=== PATIENT | female | born 1935 | race Caucasian/White ===

== ENCOUNTER 2019-03-01 17:42 | Inpatient (IN) | payer MEDICARE, BC ==
[2019-03-01 18:12] LABS: #Eosinphils 0.1 thou/uL (0.0-0.7); #Lymphocytes 1.8 thou/uL (1.20-3.40); #Monocytes 0.7 thou/uL (0.11-0.59); #Neutrophils 4.3 thou/uL (1.40-6.50); %Basophils 0.6 % (0.0-1.0); %Eosinophils 1.5 % (0.0-10.0); %Lymphocytes 25.9 % (21.0-51.0); %Monocytes 9.8 % (0.0-10.0); %Neutrophils 62.3 % (42.0-75.0); Hemoglobin 13.6 g/dL (12.0-16.0); Mean Corpuscular HGB CONC 34.1 g/dL (32.0-36.0); Mean Corpuscular Hemoglobin 31.7 pg (27.0-31.0); Mean Corpuscular Volume 92.9 fL (78.0-98.0); Mean Platelet Volume 10.1 fL (7.4-10.4); Platelet Count 131 thou/uL (130-400); RBC Distribution Width 11.9 % (11.5-14.5)
[2019-03-01 18:24] LABS: ALT (SGPT) 9 U/L (8-55); AST (SGOT) 14 U/L (5-34); Albumin 4.1 g/dL (3.4-4.8); Alkaline Phosphatase 65 U/L (40-110); Anion Gap 12 mmol/L (10-20); BUN (Urea Nitrogen) 40 mg/dL (9.8-20.1); Bilirubin, Total 0.5 mg/dL (0.2-1.2); Calc. Creatinine Clearance 0 mL/min (70-130); Calcium 9.8 mg/dL (7.8-10.44); Carbon Dioxide 26 mmol/L (23-31); Chloride 104 mmol/L (98-107); Estimated GFR-MDRD 19; Globulin 2.7 g/dL (2.4-3.5); Glucose 84 mg/dL (83-110); Potassium 4.3 mmol/L (3.5-5.1); Protein, Total 6.8 g/dL (6.0-8.3); Sodium 138 mmol/L (136-145)
[2019-03-01 18:33] LABS: Acetaminophen Less than 6.0 mcg/mL (10.0-30.0); Alcohol Less than 10 mg/dL (Less than 10); Salicylate Less than 8.0 mg/dL (15.0-30.0)
--- NOTE | 2019-03-01 19:16 | RAD ---
Chest AP view INDICATION: Altered mental status COMPARISON: Prior chest radiograph dated March 31, 2018 and March 31, 2016 FINDINGS: Lungs:The lungs are clear Cardiac silhouette:Moderate cardiomegaly is stable Pulmonary vasculature:Normal Pleural spaces:No pleural effusion or pneumothorax is demonstrated. Upper abdomen:No abnormality seen. Osseous structures: No acute osseous abnormality. Additional findings:Stable large hiatal hernia IMPRESSION: 1. Stable cardiomegaly. 2. Stable large hiatal hernia
--- NOTE | 2019-03-01 19:22 | CT ---
CT Brain WO Con: 03/01/2019 12:00 AM CLINICAL HISTORY: Altered mental status and urinary tract infection. IMAGING TECHNIQUE: Multiple CT images were obtained of the brain without IV contrast. COMPARISON: Prior exam dated June 03, 2015 FINDINGS: This patient was unable to lay the head down during the examination. The examination was pe rformed and a coronal acquisition Brain: No acute infarct or hydrocephalus is evident. No midline shift is present. There is stable mo derate chronic small vessel white matter ischemic change. Ventricles: Normal. No hydrocephalus.. Skull: Intact.. Visualized Paranasal sinuses: Clear.. Mastoid air cells:Clear. Extracranial soft tissues:Normal. IMPRESSION: No acute intracranial abnormality.
[2019-03-01 20:04] LABS: Bilirubin Negative (Negative); Blood, Urine Negative (Negative); Glucose, Urine (Dipstick) Negative (Negative); Leukocyte Moderate (Negative); Nitrite Positive (Negative); Protein, Urine (Dipstick) Negative (Neg-Trace); Urobilinogen 0.2 mg/dL (Less than 2)
[2019-03-01] MEDS ORDERED: cefTRIAXone\\ROCEPHIN 1 GM VIAL ONE (20:04)
[2019-03-01 20:08] LABS: Bacteria/HPF 4+ HPF (None Seen); RBC/HPF 0-3 HPF (0-3); WBC/HPF Greater than 50 HPF (0-3)
[2019-03-01 20:10] LABS: Clarity HAZY (Clear)
[2019-03-01 20:14] LABS: Amphetamine Not Detected (NotDetected); Barbiturates Screen Not Detected (NotDetected); Benzodiazepine Screen Not Detected (NotDetected); Cocaine Metabolite Screen Not Detected (NotDetected); Medtox Control Line Valid? VALID (VALID); Medtox Reader # READER 4; Methadone Not Detected (NotDetected); Methamphetamine Not Detected (NotDetected); Opiate Screen Not Detected (NotDetected); Oxycodone Screen Not Detected (NotDetected); Phencyclidine (PCP) Not Detected (NotDetected); THC/Cannabinoid Screen Not Detected (NotDetected); Tricyclic Screen Not Detected (NotDetected)
[2019-03-01] MEDS ORDERED: Ondansetron ODT 4 MG TAB SL PRN (22:17)
[2019-03-01] MEDS ORDERED: Ondansetron PF 4 MG/2 ML Vial IVP PRN (22:17)
[2019-03-01] MEDS ORDERED: Acetaminophen 325 MG TAB PO PRN (22:17)
[2019-03-01] MEDS ORDERED: cefTRIAXone\\ROCEPHIN 1 GM in Sodium Chloride 0.9% 100 ML IVPB SCH (22:30)
[2019-03-01] MEDS ORDERED: Dextrose 5 %-0.45 % NaCl 1,000 ML IV SCH (22:30)
[2019-03-01] MEDS: Dextrose 5 %-0.45 % NaCl 1,000 ML IV SCH (22:37)
[2019-03-01 22:51] VITALS: BMI 30.9
[2019-03-02 05:06] LABS: Anion Gap 10 mmol/L (10-20); BUN (Urea Nitrogen) 36 mg/dL (9.8-20.1); Calc. Creatinine Clearance 28 mL/min (70-130); Calcium 8.5 mg/dL (7.8-10.44); Carbon Dioxide 26 mmol/L (23-31); Chloride 107 mmol/L (98-107); Estimated GFR-MDRD 24; Glucose 112 mg/dL (83-110); Sodium 139 mmol/L (136-145)
[2019-03-02 05:18] LABS: #Eosinphils 0.1 thou/uL (0.0-0.7); #Lymphocytes 1.4 thou/uL (1.20-3.40); #Monocytes 0.7 thou/uL (0.11-0.59); %Basophils 0.1 % (0.0-1.0); %Eosinophils 1.7 % (0.0-10.0); %Neutrophils 69.2 % (42.0-75.0); Hemoglobin 11.7 g/dL (12.0-16.0); Mean Corpuscular HGB CONC 33.7 g/dL (32.0-36.0); Mean Corpuscular Hemoglobin 31.5 pg (27.0-31.0); Mean Corpuscular Volume 93.4 fL (78.0-98.0); Mean Platelet Volume 10.5 fL (7.4-10.4); Platelet Count 106 thou/uL (130-400); Platelet Morphology Comment Appears Decreased; RBC Distribution Width 11.8 % (11.5-14.5); Red Blood Cell (RBC) Count 3.73 mill/uL (4.20-5.40); White Blood Cell (WBC) Count 7.2 thou/uL (4.8-10.8)
[2019-03-02] MEDS: Dextrose 5 %-0.45 % NaCl 1,000 ML IV SCH ×3 (05:35→20:20)
[2019-03-02] MEDS ORDERED: FLU VACC TS2019-20(65YR UP)/PF 180 MCG/0.5 ML SYRINGE IM ONE (09:00)
--- NOTE | 2019-03-02 13:13 | PDOC.HHP ---
Hospitalist HPI - History of Present Illness altered mental status History of Present Illness: This is an 83 year old female who was sent from group home for altered mental status, and reduced po intake. She had UTI on 02/17. Urine culture grew Klebsiella and she was treated with cipro. Vitals upon group home transferred were unremarkable with no fever. Of note, her creatinine had been increasing from 1.5 to 2.6 over the past few months. Patient is not aware of where she is and am unable to get a history from her. She complains of abdominal pain for the past few days, constipation. She denies dysuria but states she had it last week. She denies nausea, vomiting, diarrhea , chest pain, shortness of breath, or any recent falls. She denies dizziness. Per nursing staff patient was crying earlier and wanted to go home, but now is calm. She is asking for a hamburger now. ED Course: In ED, vitals were stable. Labs significant for creatinine of 2.4. She had a UA which showed WBC > 50, moderate leukocyte esterase, + nitrite. She got IV ceftriaxone. SHe got 500 mL normal saline and 1 gram ceftriaxone. Hospitalist ROS - Review of Systems ROS unobtainable: due to mental status Constitutional: denies: fever, chills Eyes: denies: vision change ENT: denies: ear pain, ear discharge Respiratory: denies: cough, shortness of breath, hemoptysis Cardiovascular: denies: chest pain, palpitations, orthopnea Gastrointestinal: denies: nausea, vomiting, abdominal pain Genitourinary: denies: dysuria, frequency, incontinence Musculoskeletal: reports: other (reports diffuse all body pain). denies: neck pain, shoulder pain Neurological: denies: weakness, numbness, incoordination - Medication Medications: Active Medications Generic Name Dose Route Start Last Admin Trade Name Freq PRN Reason Stop Dose Admin Dextrose/Sodium Chloride 1,000 mls @ 100 mls/hr 03/01/19 20:00 03/02/19 09:41 D5 1/2 Ns IV 1,000 mls .Q10H JULIANN Administration Hospitalist History - Past Medical History Cardiac: reports: HTN, Hyperlipidemia Pulmonary: reports: asthma [employer] SYSTEMS: reports: Dementia Heme/Onc: reports: Iron deficiency anemia Psych: reports: Anxiety, Depression Endocrine: reports: Osteoporosis - Past Surgical History Other Surgical History: Cardiac cath 2012 EGD Appendectomy Total abdominal hysterectomy Bilateral salpingo-oophorectomy - Family History Other Family History: unknown - Social History Smoking Status: Unknown if ever smoked Living Situation: Alf - Exam General Appearance: NAD, awake alert Eye: PERRL, anicteric sclera ENT: normocephalic atraumatic, no oropharyngeal lesions ENT - other findings: poor dentition Neck: negative: no thyromegaly, no lymphadenopathy Heart: RRR, no murmur, no gallops, no rubs Respiratory: CTAB, no wheezes, no rales Gastrointestinal: soft, normal bowel sounds Gastrointestinal - other findings: mild tenderness in RLQ Extremities: no edema Skin: no lesions, no rashes Neurological: cranial nerve grossly intact, normal sensation to touch, no focal deficits, no new deficit Musculoskeletal: normal tone, normal strength, no muscle wasting Psychiatric: normal affect, normal behavior, oriented to place Hospitalist Results - Labs Result Diagrams: 03/02/19 04:15 03/02/19 04:15 Lab results: WBC 7.2 thou/uL (4.8-10.8) 03/02/19 04:15 Hgb 11.7 g/dL (12.0-16.0) L 03/02/19 04:15 Hct 34.8 % (36.0-47.0) L 03/02/19 04:15 MCV 93.4 fL (78.0-98.0) 03/02/19 04:15 Plt Count 106 thou/uL (130-400) L 03/02/19 04:15 Neutrophils % 69.2 % (42.0-75.0) 03/02/19 04:15 Sodium 139 mmol/L (136-145) 03/02/19 04:15 Potassium 4.0 mmol/L (3.5-5.1) 03/02/19 04:15 Chloride 107 mmol/L (98-107) 03/02/19 04:15 Carbon Dioxide 26 mmol/L (23-31) 03/02/19 04:15 BUN 36 mg/dL (9.8-20.1) H 03/02/19 04:15 Creatinine 2.03 mg/dL (0.6-1.1) H 03/02/19 04:15 Glucose 112 mg/dL (83-110) H 03/02/19 04:15 Lactic Acid 2.0 mmol/L (0.5-2.2) 03/01/19 17:58 Calcium 8.5 mg/dL (7.8-10.44) 03/02/19 04:15 Total Bilirubin 0.5 mg/dL (0.2-1.2) 03/01/19 17:59 AST 14 U/L (5-34) 03/01/19 17:59 ALT 9 U/L (8-55) 03/01/19 17:59 Alkaline Phosphatase 65 U/L (40-110) 03/01/19 17:59 Troponin I Less than 0.010 ng/mL (< 0.028) 03/01/19 17:58 B-Natriuretic Peptide 11.5 pg/mL (0-100) 03/01/19 17:59 Serum Total Protein 6.8 g/dL (6.0-8.3) 03/01/19 17:59 Albumin 4.1 g/dL (3.4-4.8) 03/01/19 17:59 Urine Ketones Negative mg/dL (Negative) 03/01/19 19:50 Urine Blood Negative (Negative) 03/01/19 19:50 Urine Nitrite Positive (Negative) A 03/01/19 19:50 Ur Leukocyte Esterase Moderate (Negative) H 03/01/19 19:50 Urine RBC 0-3 HPF (0-3) 03/01/19 19:50 Urine WBC Greater than 50 HPF (0-3) A 03/01/19 19:50 Ur Squamous Epith Cells 11-20 HPF (0-3) A 03/01/19 19:50 Urine Bacteria 4+ HPF (None Seen) A 03/01/19 19:50 Hospitalist H&P A/P - Plan Plan: Chest x ray: cardiomegaly, hiatal hernia CT head: no acute disease This is an 83 year old female sent from group home due to decreased po intake , UTI, HAMLET Acute encephalopathy possibly from Proteus UTI vs medications -urine culture here growing Proteus mirabilis. continue IV ceftriaxone for now - CT head negative, chest X ray shows no pneumonia HAMLET - creatinine improved to 2.03 with IV fluids, will continue - hold hydralazine and lasix for now Constipation - laxatives prn Dementia - namenda, risperidone, rivastigmine patch DVT prophylaxis: heparin 5000 units SC TID Code status: assume full code, unknown
[2019-03-02] MEDS ORDERED: Acetaminophen 325 MG TAB PO PRN (13:22)
[2019-03-02] MEDS ORDERED: Ondansetron ODT 4 MG TAB PO PRN (13:22)
[2019-03-02] MEDS ORDERED: cefTRIAXone\\ROCEPHIN 1 GM in Sodium Chloride 0.9% 100 ML IVPB SCH (20:00)
[2019-03-02] MEDS: risperiDONE 0.25 MG TAB PO SCH (20:04)
[2019-03-02] MEDS: Potassium Chloride 10 MEQ TAB PO SCH (20:04)
[2019-03-02] MEDS: Heparin 5,000 UNITS/ML VIAL SC SCH (21:17)
[2019-03-02] MEDS ORDERED: diphenhydrAMINE 50 MG/ML VIAL IVP SCH (22:45)
[2019-03-03] MEDS ORDERED: Melatonin 3 MG TAB PO SCH (02:00)
[2019-03-03 07:26] LABS: Hemoglobin 11.2 g/dL (12.0-16.0); Mean Corpuscular HGB CONC 33.2 g/dL (32.0-36.0); Mean Corpuscular Hemoglobin 31.8 pg (27.0-31.0); Mean Corpuscular Volume 95.8 fL (78.0-98.0); Mean Platelet Volume 10.1 fL (7.4-10.4); Platelet Count 99 thou/uL (130-400); RBC Distribution Width 11.6 % (11.5-14.5); Red Blood Cell (RBC) Count 3.51 mill/uL (4.20-5.40); White Blood Cell (WBC) Count 5.2 thou/uL (4.8-10.8)
[2019-03-03 07:48] LABS: Anion Gap 10 mmol/L (10-20); BUN (Urea Nitrogen) 23 mg/dL (9.8-20.1); Calc. Creatinine Clearance 34 mL/min (70-130); Carbon Dioxide 24 mmol/L (23-31); Chloride 109 mmol/L (98-107); Estimated GFR-MDRD 30; Glucose 108 mg/dL (83-110); Potassium 3.9 mmol/L (3.5-5.1); Sodium 139 mmol/L (136-145)
[2019-03-03] MEDS: Potassium Chloride 10 MEQ TAB PO SCH ×2 (09:00→18:33)
[2019-03-03] MEDS: Rivastigmine 9.5mg/24 Hour PATCH TOP SCH (10:03)
[2019-03-03] MEDS: Calcium Carbonate + Vit D 1 TAB PO SCH (10:03)
[2019-03-03] MEDS: Heparin 5,000 UNITS/ML VIAL SC SCH ×3 (10:04→20:42)
[2019-03-03] MEDS: Dextrose 5 %-0.45 % NaCl 1,000 ML IV SCH (18:33)
[2019-03-03] MEDS: risperiDONE 0.25 MG TAB PO SCH (20:42)
--- NOTE | 2019-03-03 23:56 | PDOC.HOSPP ---
- Subjective Encounter Date: 03/03/19 Encounter Time: 11:00 Subjective: Doing better today, no complaints except vague abdominal pain. Per nurse she had a bowel movement - Objective Vital Signs & Weight: Vital Signs (12 hours) Temp Pulse Resp BP Pulse Ox 03/03/19 20:40 94 L 03/03/19 20:00 97.5 F L 66 16 134/69 94 L Weight Weight 180 lb 1 oz I&O: 03/02/19 03/03/19 03/04/19 06:59 06:59 06:59 Intake Total 1240 2080 4102 Output Total 400 400 Balance 840 1680 4102 Result Diagrams: 03/03/19 07:08 03/03/19 07:08 Hospitalist ROS - Review of Systems Constitutional: denies: chills - Medication Medications: Active Medications Generic Name Dose Route Start Last Admin Trade Name Freq PRN Reason Stop Dose Admin Calcium/Vitamin D 1 tab 03/03/19 09:00 03/03/19 10:03 Caltrate 600 + Vit D PO 1 tab DAILY JULIANN Administration Cefpodoxime Proxetil 200 mg 03/03/19 21:00 03/03/19 20:42 Vantin PO 200 mg Q12HR JULIANN Administration Heparin Sodium (Porcine) 5,000 units 03/02/19 21:00 03/03/19 20:42 Heparin SC 5,000 units TID JULIANN Administration Dextrose/Sodium Chloride 1,000 mls @ 100 mls/hr 03/01/19 20:00 03/03/19 18:33 D5 1/2 Ns IV 1,000 mls .Q10H JULIANN Administration Memantine 10 mg 03/02/19 21:00 03/03/19 20:42 Namenda PO 10 mg BID JULIANN Administration Potassium Chloride 10 meq 03/02/19 16:30 03/03/19 18:33 Klor-Con 10 PO 10 meq BID-AC JULIANN Administration Risperidone 0.25 mg 03/02/19 21:00 03/03/19 20:42 Risperidone PO 0.25 mg HS JULIANN Administration Rivastigmine 9.5 mg 03/03/19 09:00 03/03/19 10:03 Exelon Patch TOP 9.5 mg DAILY JULIANN Administration Sertraline HCl 75 mg 03/03/19 09:00 03/03/19 10:04 Zoloft PO 75 mg DAILY JULIANN Administration Sodium Chloride 10 ml 03/03/19 21:00 03/03/19 20:42 Flush - Normal Saline IVF 10 ml Q12HR JULIANN Administration - Exam General Appearance: NAD, awake alert Eye: PERRL, anicteric sclera ENT: normocephalic atraumatic, no oropharyngeal lesions Neck: supple, symmetric Heart: RRR, no murmur, no gallops Respiratory: CTAB, no wheezes, no rales, normal chest expansion Gastrointestinal: soft, non-distended Gastrointestinal - other findings: mild lower quadrant tenderness Extremities: no cyanosis, no clubbing, no edema Skin: normal turgor Neurological: cranial nerve grossly intact Hosp A/P - Plan Acute encephalopathy possibly from Proteus UTI vs medications -urine culture here growing Proteus mirabilis. Switch to oral cefpodoxime - CT head negative, chest X ray shows no pneumonia HAMLET - creatinine improving, but not at baseline, continue fluids Constipation - laxatives prn Dementia - namenda, risperidone, rivastigmine patch
[2019-03-04] MEDS: Dextrose 5 %-0.45 % NaCl 1,000 ML IV SCH ×3 (01:15→18:05)
[2019-03-04 04:32] LABS: Hemoglobin 12.2 g/dL (12.0-16.0); Mean Corpuscular HGB CONC 33.6 g/dL (32.0-36.0); Mean Corpuscular Hemoglobin 31.8 pg (27.0-31.0); Mean Corpuscular Volume 94.6 fL (78.0-98.0); Mean Platelet Volume 10.1 fL (7.4-10.4); Platelet Count 102 thou/uL (130-400); RBC Distribution Width 11.7 % (11.5-14.5); Red Blood Cell (RBC) Count 3.84 mill/uL (4.20-5.40); White Blood Cell (WBC) Count 4.9 thou/uL (4.8-10.8)
[2019-03-04 04:51] LABS: Anion Gap 9 mmol/L (10-20); BUN (Urea Nitrogen) 15 mg/dL (9.8-20.1); Calc. Creatinine Clearance 41 mL/min (70-130); Calcium 8.5 mg/dL (7.8-10.44); Carbon Dioxide 24 mmol/L (23-31); Chloride 111 mmol/L (98-107); Estimated GFR-MDRD 36; Glucose 104 mg/dL (83-110); Potassium 4.2 mmol/L (3.5-5.1); Sodium 140 mmol/L (136-145)
[2019-03-04] MEDS: Rivastigmine 9.5mg/24 Hour PATCH TOP SCH (09:21)
[2019-03-04] MEDS: Calcium Carbonate + Vit D 1 TAB PO SCH (09:21)
[2019-03-04] MEDS: Potassium Chloride 10 MEQ TAB PO SCH ×2 (09:22→16:33)
[2019-03-04] MEDS: Heparin 5,000 UNITS/ML VIAL SC SCH ×3 (10:29→20:33)
--- NOTE | 2019-03-04 18:17 | PDOC.HOSPP ---
- Subjective Encounter Date: 03/04/19 Encounter Time: 18:16 Subjective: Patient is still complaining of abdominal pain, states pain varies between sharp or dull. Unable to state exacerbating or alleviating factors. She says she doesn't think she's had bowel movement. Aware she is in hospital and aware season is fall. - Objective Vital Signs & Weight: Vital Signs (12 hours) Temp Pulse Resp BP Pulse Ox 03/04/19 09:14 92 L 03/04/19 08:15 98.3 F 63 18 131/63 92 L Weight Weight 180 lb 1 oz I&O: 03/03/19 03/04/19 03/05/19 06:59 06:59 06:59 Intake Total 2080 4342 3080 Output Total 400 Balance 1680 4342 3080 Result Diagrams: 03/04/19 04:14 03/04/19 04:14 Hospitalist ROS - Review of Systems Constitutional: denies: fever, chills Gastrointestinal: reports: abdominal pain. denies: nausea, vomiting - Medication Medications: Active Medications Generic Name Dose Route Start Last Admin Trade Name Noah PRN Reason Stop Dose Admin Calcium/Vitamin D 1 tab 03/03/19 09:00 03/04/19 09:21 Caltrate 600 + Vit D PO 1 tab DAILY JULIANN Administration Cefpodoxime Proxetil 200 mg 03/03/19 21:00 03/04/19 09:20 Vantin PO 200 mg Q12HR JULIANN Administration Heparin Sodium (Porcine) 5,000 units 03/02/19 21:00 03/04/19 15:30 Heparin SC 5,000 units TID JULIANN Administration Dextrose/Sodium Chloride 1,000 mls @ 100 mls/hr 03/01/19 20:00 03/04/19 18:05 D5 1/2 Ns IV 1,000 mls .Q10H JULIANN Administration Memantine 10 mg 03/02/19 21:00 03/04/19 09:22 Namenda PO 10 mg BID JULIANN Administration Potassium Chloride 10 meq 03/02/19 16:30 03/04/19 16:33 Klor-Con 10 PO Not Given BID-AC JULIANN Risperidone 0.25 mg 03/02/19 21:00 03/03/19 20:42 Risperidone PO 0.25 mg HS JULIANN Administration Rivastigmine 9.5 mg 03/03/19 09:00 03/04/19 09:21 Exelon Patch TOP 9.5 mg DAILY JULIANN Administration Sertraline HCl 75 mg 03/03/19 09:00 03/04/19 09:21 Zoloft PO 75 mg DAILY JULIANN Administration Sodium Chloride 10 ml 03/03/19 21:00 03/04/19 09:26 Flush - Normal Saline IVF Not Given Q12HR JULIANN - Exam General Appearance: NAD, awake alert Eye: PERRL, anicteric sclera ENT: normocephalic atraumatic, no oropharyngeal lesions Neck: supple, symmetric, no JVD, no carotid bruit Heart: RRR, no murmur, no gallops, no rubs Respiratory: CTAB, no wheezes, no rales Gastrointestinal: non-tender, non-distended. negative: soft Gastrointestinal - other findings: mild abdominal tenderness in epigastric region Extremities: no cyanosis, no clubbing, 2+ LE edema Extremities - other findings: nonpitting edema Skin: normal turgor, no lesions, no rashes Neurological: cranial nerve grossly intact, normal sensation to touch, no focal deficits, no new deficit Musculoskeletal: normal tone, normal strength Psychiatric: oriented to place Hosp A/P - Plan This is 83 year old female sent for altered mental status, decrease po intake, treating for UTI and HAMLET Acute encephalopathy possibly from Proteus UTI vs medications -urine culture here growing Proteus mirabilis. Was on ceftriaxone 03/02-03/03. Switched to cefpodoxime 03/03, continue for another four days - CT head negative, chest X ray shows no pneumonia Abdominal pain - check CT abdomen without contrast HAMLET - creatinine down to 1.4, baseline 0.9 - continue fliuds Constipation - laxatives prn Dementia - namenda, risperidone, rivastigmine patch Physical deconditioning - PT evaluation Dispo: d/c when HAMLET resolves. Needs PT evaluati n
--- NOTE | 2019-03-04 19:52 | CT ---
CT ABDOMEN AND PELVIS PERFORMED WITHOUT CONTRAST ENHANCEMENT: 03/04/19 HISTORY: Generalized abdominal pain. Poor appetite. Surgical history of appendectomy and hysterectomy. COMPARISON: A 11/16/18 study. The lung bases show very small bilateral effusions. A large hiatal hernia is present. The liver, sple en, pancreas, and gallbladder regions appear unremarkable given limitations of a noncontrast study. A right adrenal mass is again demonstrated and has CT Hounsfield unit numbers that are most suggestiv e of a adenoma. It measures 3 cm in size. The left adrenal gland is normal in appearance. Right and l eft kidneys are normal in size and not obstructed. There is no significant periaortic or mesenteric a denopathy. CT OF PELVIS PERFORMED WITHOUT CONTRAST ENHANCEMENT: There is no evidence of adenopathy, mass or free fluid. No inflammatory change. There are arthritic changes of the spine noted. There is compression changes involving the T9 and T11 vertebral bodies. These were present on a previous 11/04/11 chest x-ray. IMPRESSION: 1. Tiny bilateral pleural effusions. 2. Large hiatal hernia. This contains both stomach and bowel. 3. Right adrenal adenoma. 4. Old compression injuries of T9 and T11. POS: [facility]
[2019-03-04] MEDS: risperiDONE 0.25 MG TAB PO SCH (20:34)
[2019-03-05 04:38] LABS: Hemoglobin 11.6 g/dL (12.0-16.0); Mean Corpuscular HGB CONC 33.8 g/dL (32.0-36.0); Mean Corpuscular Hemoglobin 31.4 pg (27.0-31.0); Mean Corpuscular Volume 92.9 fL (78.0-98.0); RBC Distribution Width 11.4 % (11.5-14.5); Red Blood Cell (RBC) Count 3.68 mill/uL (4.20-5.40); White Blood Cell (WBC) Count 4.8 thou/uL (4.8-10.8)
[2019-03-05 04:41] LABS: Platelet Count 107 thou/uL (130-400)
[2019-03-05 04:53] LABS: Anion Gap 8 mmol/L (10-20); BUN (Urea Nitrogen) 9 mg/dL (9.8-20.1); Calc. Creatinine Clearance 45 mL/min (70-130); Calcium 8.4 mg/dL (7.8-10.44); Carbon Dioxide 24 mmol/L (23-31); Chloride 113 mmol/L (98-107); Estimated GFR-MDRD 41; Glucose 87 mg/dL (83-110); Sodium 141 mmol/L (136-145)
[2019-03-05] MEDS: Dextrose 5 %-0.45 % NaCl 1,000 ML IV SCH (04:54)
[2019-03-05] MEDS: Calcium Carbonate + Vit D 1 TAB PO SCH (10:12)
[2019-03-05] MEDS: Heparin 5,000 UNITS/ML VIAL SC SCH ×3 (10:13→20:37)
[2019-03-05] MEDS: Potassium Chloride 10 MEQ TAB PO SCH ×2 (10:13→17:05)
[2019-03-05] MEDS: Rivastigmine 9.5mg/24 Hour PATCH TOP SCH (10:17)
--- NOTE | 2019-03-05 15:15 | PDOC.HOSPP ---
- Subjective Encounter Date: 03/05/19 Encounter Time: 15:13 Subjective: Patient seen and examined. No new complaints. No overnight events. no complaints. not well oriented. - Objective Vital Signs & Weight: Vital Signs (12 hours) Temp Pulse Resp BP Pulse Ox 03/05/19 08:24 98.4 F 76 16 138/94 H 96 Weight Weight 180 lb 1 oz I&O: 03/04/19 03/05/19 03/06/19 06:59 06:59 05:59 Intake Total 4342 3580 Balance 4342 3580 Result Diagrams: 03/05/19 04:15 03/05/19 04:15 Hospitalist ROS - Medication Medications: Active Medications Generic Name Dose Route Start Last Admin Trade Name Freq PRN Reason Stop Dose Admin Calcium/Vitamin D 1 tab 03/03/19 09:00 03/05/19 10:12 Caltrate 600 + Vit D PO 1 tab DAILY JULIANN Administration Cefpodoxime Proxetil 200 mg 03/03/19 21:00 03/05/19 10:16 Vantin PO 200 mg Q12HR JULIANN Administration Heparin Sodium (Porcine) 5,000 units 03/02/19 21:00 03/05/19 10:13 Heparin SC 5,000 units TID JULIANN Administration Memantine 10 mg 03/02/19 21:00 03/05/19 10:12 Namenda PO 10 mg BID JULIANN Administration Potassium Chloride 10 meq 03/02/19 16:30 03/05/19 10:13 Klor-Con 10 PO 10 meq BID-AC JULIANN Administration Risperidone 0.25 mg 03/02/19 21:00 03/04/19 20:34 Risperidone PO 0.25 mg HS JULIANN Administration Rivastigmine 9.5 mg 03/03/19 09:00 03/05/19 10:17 Exelon Patch TOP 9.5 mg DAILY JULIANN Administration Sertraline HCl 75 mg 03/03/19 09:00 03/05/19 10:13 Zoloft PO 75 mg DAILY JULIANN Administration - Exam General Appearance: NAD Eye: anicteric sclera ENT: normocephalic atraumatic Neck: supple Heart: RRR Respiratory: CTAB Gastrointestinal: soft Extremities: no edema Musculoskeletal: normal tone Psychiatric: normal affect, not oriented Hosp A/P (1) HAMLET (acute kidney injury) Code(s): N17.9 - ACUTE KIDNEY FAILURE, UNSPECIFIED Status: Acute (2) Encephalopathy Code(s): G93.40 - ENCEPHALOPATHY, UNSPECIFIED Status: Acute (3) UTI (urinary tract infection) Status: Acute (4) Dementia Code(s): F03.90 - UNSPECIFIED DEMENTIA WITHOUT BEHAVIORAL DISTURBANCE Status: Chronic (5) Hyperlipidemia Code(s): E78.5 - HYPERLIPIDEMIA, UNSPECIFIED Status: Chronic - Plan old records reviewed/req, continue antibiotics, DVT proph w/heparin continue abx. encourage po intake monitor renal function. will add Nepro as tolerated as she is having poor intake. AM labs.
[2019-03-05] MEDS: risperiDONE 0.25 MG TAB PO SCH (20:37)
[2019-03-06 06:54] LABS: Anion Gap 9 mmol/L (10-20); BUN (Urea Nitrogen) 9 mg/dL (9.8-20.1); Calc. Creatinine Clearance 42 mL/min (70-130); Carbon Dioxide 28 mmol/L (23-31); Chloride 111 mmol/L (98-107); Estimated GFR-MDRD 37; Glucose 76 mg/dL (83-110); Potassium 4.3 mmol/L (3.5-5.1); Sodium 144 mmol/L (136-145)
[2019-03-06] MEDS: Calcium Carbonate + Vit D 1 TAB PO SCH (08:49)
[2019-03-06] MEDS: Potassium Chloride 10 MEQ TAB PO SCH ×2 (08:49→15:59)
[2019-03-06] MEDS: Heparin 5,000 UNITS/ML VIAL SC SCH ×3 (08:50→21:50)
[2019-03-06] MEDS: Rivastigmine 9.5mg/24 Hour PATCH TOP SCH (08:54)
--- NOTE | 2019-03-06 12:25 | PDOC.HOSPP ---
- Subjective Encounter Date: 03/06/19 Encounter Time: 12:23 Subjective: Pt is having poor po intake. No N/V. - Objective Vital Signs & Weight: Vital Signs (12 hours) Temp Pulse Resp BP Pulse Ox 03/06/19 08:20 97.4 F L 69 16 134/63 92 L Weight Weight 180 lb 1 oz I&O: 03/05/19 03/06/19 03/07/19 07:59 06:59 06:59 Intake Total Balance Result Diagrams: 03/05/19 04:15 03/06/19 05:07 Hospitalist ROS - Medication Medications: Active Medications Generic Name Dose Route Start Last Admin Trade Name Noah PRN Reason Stop Dose Admin Calcium/Vitamin D 1 tab 03/03/19 09:00 03/06/19 08:49 Caltrate 600 + Vit D PO 1 tab DAILY JULIANN Administration Cefpodoxime Proxetil 200 mg 03/03/19 21:00 03/06/19 08:49 Vantin PO 200 mg Q12HR JULIANN Administration Heparin Sodium (Porcine) 5,000 units 03/02/19 21:00 03/06/19 08:50 Heparin SC 5,000 units TID JULIANN Administration Memantine 10 mg 03/02/19 21:00 03/06/19 08:49 Namenda PO 10 mg BID JULIANN Administration Potassium Chloride 10 meq 03/02/19 16:30 03/06/19 08:49 Klor-Con 10 PO 10 meq BID-AC JULIANN Administration Risperidone 0.25 mg 03/02/19 21:00 03/05/19 20:37 Risperidone PO 0.25 mg HS JULIANN Administration Rivastigmine 9.5 mg 03/03/19 09:00 03/06/19 08:54 Exelon Patch TOP 9.5 mg DAILY JULIANN Administration Sertraline HCl 75 mg 03/03/19 09:00 03/06/19 08:49 Zoloft PO 75 mg DAILY JULIANN Administration - Exam General Appearance: NAD Eye: anicteric sclera ENT: normocephalic atraumatic Neck: supple Heart: RRR Respiratory: CTAB Gastrointestinal: soft Extremities: no edema Skin: normal turgor Neurological: no weakness Musculoskeletal: normal tone Psychiatric: flat affect, lethargic Hosp A/P (1) HAMLET (acute kidney injury) Code(s): N17.9 - ACUTE KIDNEY FAILURE, UNSPECIFIED Status: Acute (2) Encephalopathy Code(s): G93.40 - ENCEPHALOPATHY, UNSPECIFIED Status: Acute (3) UTI (urinary tract infection) Status: Acute (4) Dementia Code(s): F03.90 - UNSPECIFIED DEMENTIA WITHOUT BEHAVIORAL DISTURBANCE Status: Chronic (5) Hyperlipidemia Code(s): E78.5 - HYPERLIPIDEMIA, UNSPECIFIED Status: Chronic - Plan old records reviewed/req, continue antibiotics continue po abx. will start on IV fluids as she is having poor po intake. monitor renal function. continue Nepro. AM labs.
[2019-03-06] MEDS: Sodium Chloride 0.9% 1,000 ML IV SCH (13:58)
[2019-03-06] MEDS: risperiDONE 0.25 MG TAB PO SCH (21:50)
[2019-03-07] MEDS: Sodium Chloride 0.9% 1,000 ML IV SCH (03:14)
[2019-03-07 05:42] LABS: #Eosinphils 0.3 thou/uL (0.0-0.7); #Lymphocytes 1.4 thou/uL (1.20-3.40); #Monocytes 0.4 thou/uL (0.11-0.59); #Neutrophils 2.8 thou/uL (1.40-6.50); %Basophils 0.5 % (0.0-1.0); %Eosinophils 6.3 % (0.0-10.0); %Lymphocytes 28.2 % (21.0-51.0); %Monocytes 8.4 % (0.0-10.0); %Neutrophils 56.5 % (42.0-75.0); Hemoglobin 11.1 g/dL (12.0-16.0); Mean Corpuscular HGB CONC 33.5 g/dL (32.0-36.0); Mean Corpuscular Hemoglobin 31.1 pg (27.0-31.0); Mean Corpuscular Volume 92.7 fL (78.0-98.0); Mean Platelet Volume 10.1 fL (7.4-10.4); Platelet Count 113 thou/uL (130-400); RBC Distribution Width 11.6 % (11.5-14.5); Red Blood Cell (RBC) Count 3.59 mill/uL (4.20-5.40)
[2019-03-07 05:47] LABS: Anion Gap 10 mmol/L (10-20); BUN (Urea Nitrogen) 8 mg/dL (9.8-20.1); Calc. Creatinine Clearance 47 mL/min (70-130); Calcium 8.5 mg/dL (7.8-10.44); Carbon Dioxide 23 mmol/L (23-31); Chloride 109 mmol/L (98-107); Estimated GFR-MDRD 43; Glucose 97 mg/dL (83-110); Sodium 138 mmol/L (136-145)
[2019-03-07] MEDS: Rivastigmine 9.5mg/24 Hour PATCH TOP SCH (08:32)
[2019-03-07] MEDS: Potassium Chloride 10 MEQ TAB PO SCH (08:32)
[2019-03-07] MEDS: Calcium Carbonate + Vit D 1 TAB PO SCH (08:32)
[2019-03-07] MEDS: Heparin 5,000 UNITS/ML VIAL SC SCH (08:33)
--- NOTE | 2019-03-07 10:03 | DIS ---
DATE OF ADMISSION: 03/01/2019 DATE OF DISCHARGE: 03/07/2019 DISCHARGE DISPOSITION: Back to [facility]. The patient was seen and examined on the day of discharge. Denies any new complaints. Mentation probably back to her baseline. Vital signs on the day of discharge showed temperature 98.5; pulse rate of 64; respirations of 16; O2 saturation, the patient is on room air; blood pressure of 143/83. DISCHARGE MEDICATIONS: 1. Omnicef 300 mg b.i.d. for next three more days. 2. Lasix and lisinopril have been discontinued. 3. I added Lasix 20 mg daily as needed for edema. 4. All other home medications were left unchanged. 5. Florastor was added. INPATIENT CONSULTANTS: None. BRIEF HOSPITAL COURSE: The patient is an 83-year-old female with dementia, currently residing at [facility], presented to the hospital with altered mentation. Please note that she was diagnosed with UTI and was started on Cipro prior to admission. Please refer to the history and physical by Dr. Komal Snell for further details. The patient was admitted to the hospital with a diagnosis of altered mentation, suspected to be secondary to UTI. CT scan of the brain was negative for acute findings. Chest x-ray was negative for infiltrate. It showed stable large hiatal hernia. She also underwent a CT scan of the abdomen and pelvis without contrast that was negative for any obstructive uropathy. Urine cultures showed Proteus mirabilis sensitive to cephalosporins and resistant to ciprofloxacin. Antibiotics have been switched to oral. Renal function has significantly improved. Creatinine on admission was 2.44, at discharge is 1.21. Lasix and lisinopril have been discontinued due to renal failure. She is probably back to her baseline. Her WBC count on discharge is normal. FINAL DIAGNOSES: 1. Toxic metabolic encephalopathy secondary to Proteus urinary tract infection. 2. Acute kidney injury on chronic kidney disease stage 3. Please note that scheduled Lasix and lisinopril have been discontinued. 3. Dementia. 4. Large hiatal hernia. 5. Tiny bilateral pleural effusion. 6. Right adrenal adenoma found on the CT scan. Primary care physician advised to follow. 7. Old compression injuries of T9 and T11 on the CT. 8. Mild intermittent asthma. 9. Chronic anemia. 10. Osteoporosis. 11. Anxiety. 12. Obesity with a BMI of 30.9. 13. Physical deconditioning. TIME SPENT: Total time coordinating the discharge of this patient was 36 minutes. Job ID: [id number]
[2019-03-07 11:24] VITALS: BP 143/78; TEMP 97.4
--- NOTE | 2019-03-08 23:01 | PQF ---
BILL GILLIS MALIK MD [id number] [id number] CLINICAL DOCUMENTATION CLARIFICATION FORM: POST DISCHARGE Addendum to original discharge summary date: ____ Late entry note date: __ DATE: 03/08/19 ATTN: Pop Zamora Please exercise your independent, professional judgment in responding to the clarification form. Clinical indicators are provided on the bottom of this form for your review Please check appropriate box(es): [ ] Sepsis due to Proteus UTI [ x ] Severe sepsis with acute organ dysfunction of: _Encephalopathy_ (Examples: respiratory failure, encephalopathy, acute kidney failure, other) [ ] Septic Shock [ ] Localized infection without sepsis [ ] Other diagnosis [ ] Unable to determine In addition, please specify: Present on Admission (POA): [x ] Yes [ ] No [ ] Unable to determine For continuity of documentation, please document condition throughout progress notes and discharge summary. Thank You. CLINICAL INDICATORS - SIGNS / SYMPTOMS / LABS ED p3 03/01 BP 113/56 H&P p1 03/02 Dr Snell sent from [facility] for altered mental status and reduced po intake H&P p1 03/02 Dr Snell She had a UA which showed WBC >50, moderate leukocyte esterase +nitrite. H&P p5 03/02 Dr Snell - urine culture here growing Proteus mirabilis, continue IV cefriaxone RISK FACTORS H&P p1 03/02 - 83 year-old female H&P p5 03/02 - UTI H&P p5 03/02 -Acute Encephalopathy H&P p5 03/02 - HAMLET TREATMENTS: JUL 11 IV Cetrixone JUL 11 500 ml normal saline (This form is maintained as a part of the permanent medical record) 2014 [employer] All Rights Reserved [email or web address] [not [email or web address]] [email or web address]
== END 2019-03-07 12:45 | DRG 871 ==
LOC: ERS 17:42 → ONC 20:00
PROVIDERS: ADMIT Internal Medicine; ATTEND Internal Medicine
PROC: 3E0234Z Introduction of Serum, Toxoid and Vaccine into Muscle, Percutaneous Approach (ICD-10-PCS; principal; 2019-03-02)
DX: A41.9 Sepsis, unspecified organism (principal); G92 Toxic encephalopathy; N17.9 Acute kidney failure, unspecified; N39.0 Urinary tract infection, site not specified; Z16.29 Resistance to other single specified antibiotic; J90 Pleural effusion, not elsewhere classified; M80.08XA Age-related osteoporosis with current pathological fracture, vertebra(e), initial encounter for fracture; I13.0 Hypertensive heart and chronic kidney disease with heart failure and stage 1 through stage 4 chronic kidney disease, or unspecified chronic kidney disease; R65.20 Severe sepsis without septic shock; B96.4 Proteus (mirabilis) (morganii) as the cause of diseases classified elsewhere; K44.9 Diaphragmatic hernia without obstruction or gangrene; D35.01 Benign neoplasm of right adrenal gland; J45.20 Mild intermittent asthma, uncomplicated; F41.9 Anxiety disorder, unspecified; E66.9 Obesity, unspecified; K21.9 Gastro-esophageal reflux disease without esophagitis; G30.9 Alzheimer's disease, unspecified; F02.80 Dementia in other diseases classified elsewhere, unspecified severity, without behavioral disturbance, psychotic disturbance, mood disturbance, and anxiety; E87.6 Hypokalemia; F32.9 Major depressive disorder, single episode, unspecified; E78.5 Hyperlipidemia, unspecified; D50.9 Iron deficiency anemia, unspecified; K59.00 Constipation, unspecified; M19.90 Unspecified osteoarthritis, unspecified site; N18.3 Chronic kidney disease, stage 3 (moderate); D63.1 Anemia in chronic kidney disease; Z68.30 Body mass index [BMI] 30.0-30.9, adult; Z79.899 Other long term (current) drug therapy; Z90.710 Acquired absence of both cervix and uterus; Z90.722 Acquired absence of ovaries, bilateral; Z88.0 Allergy status to penicillin; Z88.8 Allergy status to other drugs, medicaments and biological substances; Z23 Encounter for immunization
CPT/HCPCS: 36415; 51701; 70450; 71045; 74176; 80048; 80053; 80306; 80307; 81003; 81015; 83605; 83880; 84443; 84484; 85025; 85027; 87077; 87086; 87186; 93005; 96361; 96365; A4353; J0696; J1200; J1644; J3490

== ENCOUNTER 2020-08-13 12:09 | Emergency (ER) | payer MEDICARE, BC ==
[2020-08-13 13:01] LABS: #Lymphocytes 1.8 thou/uL (1.20-3.40); #Monocytes 0.3 thou/uL (0.11-0.59); #Neutrophils 6.7 thou/uL (1.40-6.50); %Basophils 0.4 % (0.0-1.0); %Eosinophils 0.5 % (0.0-10.0); %Lymphocytes 19.8 % (21.0-51.0); %Monocytes 3.5 % (0.0-10.0); %Neutrophils 75.7 % (42.0-75.0); Hemoglobin 14.6 g/dL (12.0-16.0); Mean Corpuscular HGB CONC 32.1 g/dL (32.0-36.0); Mean Corpuscular Volume 96.5 fL (78.0-98.0); Mean Platelet Volume 9.9 fL (7.4-10.4); Platelet Count 125 thou/uL (130-400); RBC Distribution Width 13.1 % (11.5-14.5); Red Blood Cell (RBC) Count 4.72 mill/uL (4.20-5.40); White Blood Cell (WBC) Count 8.9 thou/uL (4.8-10.8)
[2020-08-13 13:26] LABS: ALT (SGPT) 18 U/L (8-55); AST (SGOT) 28 U/L (5-34); Albumin 3.9 g/dL (3.4-4.8); Alkaline Phosphatase 91 U/L (40-110); Anion Gap 17 mmol/L (10-20); BUN (Urea Nitrogen) 18 mg/dL (9.8-20.1); Bilirubin, Total 0.4 mg/dL (0.2-1.2); Calc. Creatinine Clearance 0 mL/min (70-130); Calcium 9.2 mg/dL (7.8-10.44); Carbon Dioxide 23 mmol/L (23-31); Chloride 104 mmol/L (98-107); Globulin 2.8 g/dL (2.4-3.5); Glucose 107 mg/dL (83-110); Lipase 95 U/L (8-78); Potassium 4.3 mmol/L (3.5-5.1); Protein, Total 6.7 g/dL (5.8-8.1); Sodium 140 mmol/L (136-145)
[2020-08-13] MEDS ORDERED: Iopamidol-370 76% 500 ML 1 ML ONE (14:45)
== END 2020-08-13 16:12 ==
LOC: ERS 12:09
DX: K44.9 Diaphragmatic hernia without obstruction or gangrene (principal); F03.90 Unspecified dementia, unspecified severity, without behavioral disturbance, psychotic disturbance, mood disturbance, and anxiety; R06.02 Shortness of breath; M81.0 Age-related osteoporosis without current pathological fracture; K21.9 Gastro-esophageal reflux disease without esophagitis; E78.5 Hyperlipidemia, unspecified; I10 Essential (primary) hypertension; E78.00 Pure hypercholesterolemia, unspecified; Z79.899 Other long term (current) drug therapy
CPT/HCPCS: 36415; 71045; 71275; 80053; 83690; 83880; 84484; 85025; 85379; 93005; Q9967

== ENCOUNTER 2021-05-16 00:04 | Inpatient (IN) | payer MEDICARE, BC, MEDICAID ==
[2021-05-16] MEDS ORDERED: Norepinephrine 8 MG/0.9% NS 250 ML ONE (00:07)
[2021-05-16] MEDS ORDERED: Fentanyl 100 MCG/2 ML VIAL ONE ×2 (00:30→01:17)
[2021-05-16 01:31] LABS: Anion Gap 12 mmol/L (10-20); BUN (Urea Nitrogen) 35 mg/dL (9.8-20.1); Calc. Creatinine Clearance 0 mL/min (70-130); Calcium 7.8 mg/dL (7.8-10.44); Carbon Dioxide 23 mmol/L (23-31); Chloride 118 mmol/L (98-107); Glucose 114 mg/dL (83-110); Potassium 4.4 mmol/L (3.5-5.1); Sodium 149 mmol/L (136-145)
[2021-05-16 01:53] LABS: CKMB 6.3 ng/mL (0-6.6)
[2021-05-16] MEDS ORDERED: Morphine 4 MG/ML VIAL SLOW IVP PRN (03:08)
[2021-05-16] MEDS ORDERED: Lorazepam 2 MG/ML VIAL SLOW IVP PRN (03:15)
[2021-05-16] MEDS ORDERED: Morphine 2 MG/ML VIAL SLOW IVP PRN (03:15)
[2021-05-16] MEDS ORDERED: DISCONTINUE PREVIOUS NARCOTIC PAIN MEDICATIONS AND BENZODIAZEPINES FS SCH (03:15)
[2021-05-16] MEDS ORDERED: Fentanyl BOLUS 250 ML IVPB PRN (03:15)
[2021-05-16] MEDS ORDERED: Ondansetron PF 4 MG/2 ML Vial IVP PRN ×2 (03:15→03:21)
[2021-05-16] MEDS ORDERED: Ondansetron ODT 4 MG TAB SL PRN (03:15)
[2021-05-16] MEDS ORDERED: Fentanyl CADD 100 ML IV SCH (03:15)
[2021-05-16] MEDS ORDERED: Propofol BOLUS 1,000 MG/100 ML VIAL IV PRN (03:15)
[2021-05-16] MEDS ORDERED: Lactated Ringer's 1,000 ML IV SCH (03:15)
[2021-05-16] MEDS ORDERED: Propofol 1,000 MG/100 ML VIAL IV PRN (03:15)
[2021-05-16] MEDS ORDERED: Acetaminophen 325 MG TAB PO PRN (03:21)
[2021-05-16] MEDS ORDERED: VANCOMYCIN IVPB PRN (03:22)
[2021-05-16] MEDS ORDERED: MEROPENEM IVPB PRN (03:22)
[2021-05-16] MEDS ORDERED: Sodium Chloride 0.9% 1,000 ML IV SCH (04:00)
[2021-05-16] MEDS ORDERED: Heparin 10,000 UNITS/ 10 ML VIAL SLOW IVP SCH (04:00)
[2021-05-16] MEDS ORDERED: Heparin 25,000 units/D5W 500 ML IVPB SCH (04:00)
[2021-05-16 04:21] LABS: Band 12 % (5-11); Hemoglobin 12.5 g/dL (12.0-16.0); Hypochromia SLIGHT = 6-15 cells (100X) (0-5/hpf); Lymphocytes 2 % (21-51); MDiff Complete? YES; Macrocytosis SLIGHT = 6-15 cells (100X) (0-5/hpf); Mean Corpuscular HGB CONC 31.1 g/dL (32.0-36.0); Mean Corpuscular Hemoglobin 30.9 pg (27.0-31.0); Mean Corpuscular Volume 99.1 fL (78.0-98.0); Mean Platelet Volume 10.5 fL (7.4-10.4); Monocytes 4 % (0-10); Neutrophil 82 % (42-75); Platelet Count 172 thou/uL (130-400); Platelet Morphology Comment Appears Adequate; Polychromasia SLIGHT = 2-3 cells (100X) (0-2/hpf); Red Blood Cell (RBC) Count 4.04 mill/uL (4.20-5.40); White Blood Cell (WBC) Count 20.2 thou/uL (4.8-10.8)
[2021-05-16 04:23] LABS: ALT (SGPT) 29 U/L (8-55); AST (SGOT) 39 U/L (5-34); Albumin 2.5 g/dL (3.4-4.8); Alkaline Phosphatase 105 U/L (40-110); Anion Gap 15 mmol/L (10-20); BUN (Urea Nitrogen) 34 mg/dL (9.8-20.1); Bilirubin, Total 0.5 mg/dL (0.2-1.2); Calc. Creatinine Clearance 0 mL/min (70-130); Calcium 7.9 mg/dL (7.8-10.44); Carbon Dioxide 20 mmol/L (23-31); Chloride 117 mmol/L (98-107); Globulin 2.7 g/dL (2.4-3.5); Glucose 96 mg/dL (83-110); Potassium 4.9 mmol/L (3.5-5.1); Protein, Total 5.2 g/dL (5.8-8.1); Sodium 147 mmol/L (136-145)
[2021-05-16 04:57] LABS: INR-International Normal Ratio 1.2; PTT 33.5 sec (22.9-36.1); Prothrombin Time 15.5 sec (12.0-14.7)
[2021-05-16 05:36] VITALS: BMI 26.9
[2021-05-16 05:51] VITALS: TEMP 97.2
[2021-05-16] MEDS ORDERED: Meropenem 1 GM in Sodium Chloride 0.9% 100 ML IVPB SCH ×2 (07:00→21:00)
[2021-05-16] MEDS ORDERED: Dexamethasone 4 mg/ml Vial ONE (07:40)
[2021-05-16 07:54] LABS: Actual Bicarbonate (HCO3a) 21.4 mEq/L (22-28); Base Excess (BEa) -2.2 mEq/L (-2.0 to +3.0); CO2 Tension 33.5 mmHg (35.0-45.0); Calcium, Ionized (arterial) 1.16 mmol/L (1.12-1.30); Carboxyhemoglobin (COHb) 0.4 gm% (0.0-3.0); Hemoglobin (Hb) 13.9 g/dL (12.0-16.0); O2 Tension (PaO2), arterial 98.2 mmHg (> 60.0); Potassium - ABG Lab 4.52 mmol/L (3.70-5.30); pH, Arterial 7.42 (7.35-7.45)
[2021-05-16 07:55] LABS: ALV-art Gradient 287.725 mmHg (0-20); Puncture Site RRA
[2021-05-16] MEDS ORDERED: Ascorbic Acid 500 mg Chewable Tablet PO SCH (09:00)
[2021-05-16] MEDS ORDERED: Famotidine 20 MG TAB PO SCH (09:00)
[2021-05-16] MEDS ORDERED: Enoxaparin Sodium 40 MG/0.4 ML SYRINGE SC SCH (09:00)
[2021-05-16] MEDS ORDERED: Zinc Sulfate 220 MG CAP PO SCH (09:00)
[2021-05-16] MEDS ORDERED: Dexamethasone 10 MG/ML VIAL SLOW IVP SCH (09:00)
[2021-05-16 11:55] LABS: PTT Greater than 250.0 sec (22.9-36.1)
[2021-05-16] MEDS ORDERED: Iopamidol-370 76% 500 ML 1 ML ONE (14:05)
[2021-05-16 14:35] VITALS: BP 105/70
[2021-05-16] MEDS ORDERED: Vancomycin 1 GM in Premix Bag 1 BAG IVPB SCH (21:00)
== END 2021-05-16 14:48 | disposition hospice, inpatient (51) | DRG 208 ==
LOC: ERS 00:04 → CCU 01:23 → ERHOLD 03:30 → CCU 03:31
PROVIDERS: ADMIT Internal Medicine; ATTEND Internal Medicine
PROC: 05HN33Z Insertion of Infusion Device into Left Internal Jugular Vein, Percutaneous Approach (ICD-10-PCS; principal; 2021-05-16)
PROC: 5A1935Z Respiratory Ventilation, Less than 24 Consecutive Hours (ICD-10-PCS; 2021-05-16)
PROC: 0BH17EZ Insertion of Endotracheal Airway into Trachea, Via Natural or Artificial Opening (ICD-10-PCS; 2021-05-16)
PROC: 8E0ZXY6 Isolation (ICD-10-PCS; 2021-05-16)
PROC: B544ZZA Ultrasonography of Left Jugular Veins, Guidance (ICD-10-PCS; 2021-05-16)
PROC: 3E033XZ Introduction of Vasopressor into Peripheral Vein, Percutaneous Approach (ICD-10-PCS; 2021-05-16)
DX: U07.1 COVID-19 (principal); J96.01 Acute respiratory failure with hypoxia; J96.02 Acute respiratory failure with hypercapnia; I26.99 Other pulmonary embolism without acute cor pulmonale; R57.8 Other shock; N17.9 Acute kidney failure, unspecified; E87.0 Hyperosmolality and hypernatremia; I31.3 Pericardial effusion (noninflammatory); J98.11 Atelectasis; Z66 Do not resuscitate; M19.90 Unspecified osteoarthritis, unspecified site; F32.A Depression, unspecified; E66.9 Obesity, unspecified; I10 Essential (primary) hypertension; E78.5 Hyperlipidemia, unspecified; J45.909 Unspecified asthma, uncomplicated; K21.9 Gastro-esophageal reflux disease without esophagitis; D50.9 Iron deficiency anemia, unspecified; M81.0 Age-related osteoporosis without current pathological fracture; G30.9 Alzheimer's disease, unspecified; F02.80 Dementia in other diseases classified elsewhere, unspecified severity, without behavioral disturbance, psychotic disturbance, mood disturbance, and anxiety; R79.89 Other specified abnormal findings of blood chemistry; E88.09 Other disorders of plasma-protein metabolism, not elsewhere classified; E87.5 Hyperkalemia; Z79.899 Other long term (current) drug therapy; Z68.27 Body mass index [BMI] 27.0-27.9, adult; Z90.49 Acquired absence of other specified parts of digestive tract; Z90.710 Acquired absence of both cervix and uterus; Z78.1 Physical restraint status; Z88.0 Allergy status to penicillin; Z88.8 Allergy status to other drugs, medicaments and biological substances; I25.2 Old myocardial infarction; I95.9 Hypotension, unspecified; D72.829 Elevated white blood cell count, unspecified
CPT/HCPCS: 36415; 36556; 36600; 51702; 71045; 71275; 74174; 80048; 82553; 82805; 83880; 84484; 85025; 85610; 85730; 93005; 93306; 94002; 94003; 96365; 96366; 96375; 96376; J1100; J1644; J2185; J2704; J3010; J3490; J7050; Q9967

== ENCOUNTER 2021-05-16 15:30 | Inpatient (IN) | payer OTHER ==
[~2021-05-16 15:30] MED LIST: Propofol 1,000 MG/100 ML VIAL IV ONE
[2021-05-16] MEDS ORDERED: Lorazepam 2 MG/ML VIAL ONE (15:37)
[2021-05-16] MEDS ORDERED: Morphine 4 MG/ML VIAL ONE (15:37)
[2021-05-16] MEDS ORDERED: Morphine 4 MG/ML VIAL SLOW IVP PRN (15:40)
[2021-05-16] MEDS ORDERED: Lorazepam 2 MG/ML VIAL SLOW IVP PRN ×2 (15:41→15:45)
[2021-05-16] MEDS ORDERED: diphenhydrAMINE 50 MG/ML VIAL IVP PRN (15:45)
[2021-05-16] MEDS ORDERED: Ondansetron PF 4 MG/2 ML Vial IVP PRN (15:45)
[2021-05-16] MEDS ORDERED: Scopolamine 1.5 mg/72 hour Patch TOP SCH (16:00)
[2021-05-16] MEDS: Morphine 4 MG/ML VIAL SLOW IVP PRN (16:08)
[2021-05-16] MEDS: Morphine 4 MG/ML VIAL SLOW IVP SCH ×4 (17:57→23:00)
[2021-05-16] MEDS: Lorazepam 2 MG/ML VIAL SLOW IVP SCH ×2 (18:08→20:59)
[2021-05-17] MEDS: Morphine 4 MG/ML VIAL SLOW IVP SCH ×12 (00:11→22:48)
[2021-05-17] MEDS: Lorazepam 2 MG/ML VIAL SLOW IVP SCH ×6 (00:49→22:45)
[2021-05-17] MEDS: Morphine 4 MG/ML VIAL SLOW IVP PRN (02:35)
[2021-05-17 08:21] VITALS: TEMP 93.5
[2021-05-18] MEDS: Morphine 4 MG/ML VIAL SLOW IVP SCH ×12 (00:55→22:10)
[2021-05-18] MEDS: Lorazepam 2 MG/ML VIAL SLOW IVP SCH ×6 (00:55→20:37)
[2021-05-18 20:39] VITALS: BP 117/79
[2021-05-19] MEDS: Morphine 4 MG/ML VIAL SLOW IVP SCH ×5 (00:20→08:00)
[2021-05-19] MEDS: Lorazepam 2 MG/ML VIAL SLOW IVP SCH ×2 (00:20→04:29)
== END 2021-05-19 08:00 | disposition expired | DRG 951 ==
LOC: CCU 15:30 → T4-B 05-17 12:06 → CCU 05-17 12:11 → T4-B 05-17 13:49
PROVIDERS: ADMIT Family Medicine; ATTEND Family Medicine
DX: Z51.5 Encounter for palliative care (principal); Z66 Do not resuscitate; U07.1 COVID-19; J96.01 Acute respiratory failure with hypoxia; J96.02 Acute respiratory failure with hypercapnia; I26.99 Other pulmonary embolism without acute cor pulmonale; I31.3 Pericardial effusion (noninflammatory); E87.0 Hyperosmolality and hypernatremia; I10 Essential (primary) hypertension; E78.5 Hyperlipidemia, unspecified; J45.909 Unspecified asthma, uncomplicated; K21.9 Gastro-esophageal reflux disease without esophagitis; D50.9 Iron deficiency anemia, unspecified; M81.0 Age-related osteoporosis without current pathological fracture; G30.9 Alzheimer's disease, unspecified; F32.A Depression, unspecified; M17.9 Osteoarthritis of knee, unspecified; R77.8 Other specified abnormalities of plasma proteins; F02.80 Dementia in other diseases classified elsewhere, unspecified severity, without behavioral disturbance, psychotic disturbance, mood disturbance, and anxiety; I49.8 Other specified cardiac arrhythmias; Z88.0 Allergy status to penicillin; Z88.8 Allergy status to other drugs, medicaments and biological substances; Z79.899 Other long term (current) drug therapy; Z90.49 Acquired absence of other specified parts of digestive tract; Z90.710 Acquired absence of both cervix and uterus; Z90.721 Acquired absence of ovaries, unilateral
CPT/HCPCS: 36416; J2060; J2270